=== PATIENT | female | born 1995 | race Caucasian/White ===

== ENCOUNTER 2016-04-16 16:02 | Emergency (ER) | payer OTHER ==
--- NOTE | 2016-04-16 18:40 | REPUSA ---
CLINICAL HISTORY: VAGINAL BLEEDING TECHNIQUE: Transabdominal and endovaginal ultrasound of the pelvis was performed. FINDINGS: The uterus is anteverted. A pole is identified with crown-rump length of 0.26 cm, which corresponds to a gestational age of 9 weeks and 2 days. A yolk sac is noted. heart motion is demonstrated, with a rate of 175 beats per minute. DORA is estimated at 11/17/16. Both ovaries are identified without adnexal mass or pelvic fluid collection. IMPRESSION: Single live IUP dated at 9 weeks and 2 days.
[2016-04-16 18:41] LABS: MEAN CORPUSCULAR HEMOGLOBIN 29.4 pg (27.0-33.0); MEAN CORPUSCULAR HGB CONC 34.5 g/dl (32.0-36.5); MEAN CORPUSCULAR VOLUME 85.2 fl (80.0-96.0); RED CELL DISTRIBUTION WIDTH 13.2 % (11.5-14.5); WHITE BLOOD COUNT 11.6 K/mm3 (4.0-10.0)
[2016-04-16 18:57] LABS: ALBUMIN 3.7 GM/DL (3.2-5.2); ALBUMIN/GLOBULIN RATIO 1.16 (1.00-1.93); ALKALINE PHOSPHATASE 98 U/L (45-117); ALT/SGPT 27 U/L (12-78); ANION GAP 10 MEQ/L (8-16); AST/SGOT 24 U/L (15-37); BILIRUBIN,TOTAL 0.3 MG/DL (0.2-1.0); BLOOD UREA NITROGEN 8 MG/DL (7-18); CARBON DIOXIDE LEVEL 23 MEQ/L (21-32); CHLORIDE LEVEL 107 MEQ/L (98-107); CREATININE FOR GFR 0.58 MG/DL (0.55-1.02); GLUCOSE, FASTING 78 MG/DL (70-105); HCG, SERUM QUANTITATIVE 102947 MIU/ML; POTASSIUM SERUM 4.1 MEQ/L (3.5-5.1); SODIUM LEVEL 140 MEQ/L (136-145); TOTAL PROTEIN 6.9 GM/DL (6.4-8.2)
--- NOTE | 2016-04-16 21:08 | EDDOCDS ---
Nurse's Notes [facility] Name: Benjamin Veras Age: 20 yrs Sex: Female : 1995 Arrival Date: 04/16/2016 Time: 16:02 Bed I4 / M4 Private MD: YEISON Mohan Diagnosis: related conditions, unspecified, first trimester;Pelvic and perineal pain;Other abnormal uterine and vaginal bleeding-Spotting post U/S Presentation: 04/16 16:55 Presenting complaint: Patient states: approx 9 weeks with vag bleeding x2 hrs. ttb Heavy bleeding. Some mild cramping. Risk factors: The patient reports no loss of conciousness prior to arrival. This patient has not had a hysterectomy. This patient has not begun menopause. Adult Sepsis Screening: The patient does not have new or worsening altered mentation. Patient's respiratory rate is less than 22. Systolic blood pressure is greater than 100. Patient has a qSOFA score of 0- Negative Sepsis Screen. Suicide/Homicide risk assessment- the patient denies having any suicidal and/or homicidal ideations and does not present with any other emotional, behavioral or mental health complaints. Status: The patient is a dependent. Transition of care: patient was not received from another setting of care. 16:55 Acuity: JARED Level 3 ttb 16:55 Method Of Arrival: Walkin/Carried/Asstd ttb Triage Assessment: 16:57 General: Appears in no apparent distress, well nourished, well groomed, Behavior is ttb appropriate for age, cooperative, pleasant. Pain: Location: lower abd Pain currently is 4 out of 10 on a pain scale. Pain does not radiate. Quality of pain is described as sharp, sharp on right, mild cramping. HIV screening NA for this visit Offered previously. Neurological: Level of Consciousness is awake, alert. Cardiovascular: Chest pain is denied. Respiratory: No deficits noted. Airway is patent Denies cough, shortness of breath. : Reports vaginal bleeding that is heavy flow since 2 hrs ago. Derm: Skin is normal. Injury Description: No known injury. 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 Vitamin Oral tab 1 tab once daily (Last dose: 04/15/2016 20:00) - PMHx: Polycystic Ovary Disease; - PSHx: Tonsillectomy; - Social history: Smoking status: Patient states was never smoker of tobacco. Patient/guardian denies using alcohol, street drugs, No barriers to communication noted, The patient speaks fluent Mosotho, Speaks appropriately for age. - Family history: Not pertinent. - : The pt / caregiver states he / she is not on anticoagulants. Home medication list is obtained from the patient. - Exposure Risk Screening:: None identified. Screenin:05 Screening information is obtained from the patient. Fall risk: No risks identified. ka4 Assistance ADL's: requires no assistance with activities of daily living. Abuse/DV Screen: The patient / caregiver reports he/she is: not in a situation that causes fear, pain or injury. Nutritional screening: No deficits noted. Advance Directives: There is no active DNR order. home support is adequate. Assessment: 18:02 General: Appears in no apparent distress, comfortable, well developed, well nourished, ka4 well groomed, Behavior is appropriate for age, cooperative, pleasant. Neurological: Level of Consciousness is awake, alert, obeys commands, Oriented to person, place, time, Content Creation Manager are equal bilaterally Moves all extremities. Gait is steady, Speech is normal. Respiratory: Airway is patent Respiratory effort is even, unlabored, Respiratory pattern is regular, symmetrical. GI: Abdomen is flat, non- distended. Derm: Skin is intact, is healthy with good turgor, Skin is pink, warm & dry. 19:30 General: Appears in no apparent distress, Behavior is cooperative, denies of rs3 pain/distress. returned from ultrasound. waiting on test results. . 21:05 General: Appears in no apparent distress, comfortable, well nourished, well groomed, ka4 Behavior is appropriate for age, cooperative, crying, pleasant. Neurological: Level of Consciousness is awake, alert, obeys commands, Oriented to person, place, time, Content Creation Manager are equal bilaterally Moves all extremities. Gait is steady, Speech is normal. Respiratory: Airway is patent Respiratory effort is even, unlabored, Respiratory pattern is regular, symmetrical. Derm: Skin is intact, is healthy with good turgor, Skin is pink, warm & dry. Vital Signs: 16:03 BP 139 / 84; Pulse 80; Resp 18 S; Temp 98.0(O); Pulse Ox 100% on R/A; Weight 68.04 kg gr2 (R); Height 5 ft. 7 in. (170.18 cm) (R); Pain 2/10; 20:58 BP 128 / 77 LA Sitting (auto/reg); Pulse 81 MON; Resp 18 S; Temp 98.3(O); Pulse Ox 100% ka4 on R/A; Pain 0/10; 16:03 Body Mass Index 23.49 (68.04 kg, 170.18 cm) gr2 Vitals: 16:03 Log In Time: April 16, 2016 at 16:03. gr2 ED Course: 16:03 Patient visited by Danyell Chaves. gr2 16:03 [facility] is Private Physician. gr2 16:03 Patient moved to Waiting gr2 16:05 Patient visited by Danyell Chaves. gr2 16:06 Patient moved to Pre RCE gr2 16:56 Triage Initiated ttb 17:01 Patient moved to Triage 2 ka4 17:26 Cher Quiñones PA-C is PHCP. ef1 17:26 Carolyn Toscano MD is Attending Physician. ef1 17:27 Patient visited by Cher Quiñones PA-C. ef1 17:39 Patient moved to I4 / M4 ka4 17:58 Complete Comphrensive Metabolic Sent. ka4 17:58 Complete Blood Count Sent. ka4 17:58 Hcg, Serum Quantitative Sent. ka4 17:58 Type & Screen Sent. ka4 17:58 Inserted saline lock: 20 gauge in left antecubital area and blood collected. The ka4 patient tolerated the procedure well. Labs drawn. (by ED staff). Sent per order to lab. Urine collected. Clean catch specimen. Urine specimen sent to lab. 17:59 Patient visited by Radha Gil LPN. ka4 18:02 Patient moved to Ultrasound am17 18:03 Patient visited by Radha Gil LPN. ka4 18:09 Patient moved to I4 / M4 am17 18:45 [facility] Payment Agreement was scanned into [employer] and attached to record. gjb 18:55 Patient visited by Cher Quiñones PA-C. ef1 19:05 US 1st trimester Returned. EDMS 19:17 Patient visited by Cher Quiñones PA-C. ef1 20:07 Patient visited by Cher Quiñones PA-C. ef1 20:25 Patient visited by Cher Quiñones PA-C. ef1 20:54 Patient visited by Cher Quiñones PA-C. ef1 20:56 Emanuel Concepcion, OB is Referral Physician. ef1 21:05 The patient / caregiver is instructed regarding the plan of care and ED course. Patient kelly has correct armband on for positive identification. 21:05 Discontinued IV lock intact, bleeding controlled, pressure dressing applied, No ka4 redness/swelling at site. No procedures done that require assistance. Administered Medications: 18:02 Drug: NS 0.9% 1000 ml [sodium chloride 0.9 % intravenous solution] Route: IV; Rate: ka4 bolus; Site: left antecubital; Order Results: Lab Order: Complete Blood Count; SPEC'M 04/16/16 17:42 Test: WHITE BLOOD COUNT; Value: 11.6; Range: 4.0-10.0; Abnormal: Above high normal; Units: K/mm3; Status: F Test: RED BLOOD COUNT; Value: 4.76; Range: 4.00-5.40; Units: M/mm3; Status: F Test: HEMOGLOBIN; Value: 14.0; Range: 12.0-16.0; Units: g/dl; Status: F Test: HEMATOCRIT; Value: 40.6; Range: 36.0-47.0; Units: %; Status: F Test: MEAN CORPUSCULAR VOLUME; Value: 85.2; Range: 80.0-96.0; Units: fl; Status: F Test: MEAN CORPUSCULAR HEMOGLOBIN; Value: 29.4; Range: 27.0-33.0; Units: pg; Status: F Test: MEAN CORPUSCULAR HGB CONC; Value: 34.5; Range: 32.0-36.5; Units: g/dl; Status: F Test: RED CELL DISTRIBUTION WIDTH; Value: 13.2; Range: 11.5-14.5; Units: %; Status: F Test: PLATELET COUNT, AUTOMATED; Value: 250; Range: 150-450; Units: k/mm3; Status: F Lab Order: Hcg, Serum Quantitative; SPEC'M 04/16/16 17:42 Test: HCG, SERUM QUANTITATIVE; Value: [id number]; Units: MIU/ML; Status: F Test Note: ; GESTATIONAL AGE APPROXIMATE HCG RANGE (MIU/ML) 0.2-1 WEEK 5-50 1-2 WEEKS 50-500 2-3 WEEKS 100-5,000 3-4 WEEKS 500-10,000 4-5 WEEKS 1,000-50,000 5-6 WEEKS 10,000-100,000 6-8 WEEKS 15,000-200,000 2-3 MONTHS 10,000-100,000 NON FEMALES LESS THAN 3.0 Patient samples may contain human heterophilic antibodies that could react with immunoassays to give falsely elevated or depressed results. This assay has been designed to minimize interference from heterophilic antibodies. Elevated hCG levels have also been associated with trophoblastic disease and nontrophoblastic neoplasms. The possibility of having these diseases should be considered before a diagnosis of is made. This test is not intended for use as a surrogate marker for aiding in the diagnosis or monitoring the treatment of cancer patients. Siemens Stuffle methodology. Lab Order: Type & Screen; SPEC'M 04/16/16 19:37 Test: BLOOD TYPE; Value: O POS; Status: F Test: AB SCREEN (INDIRECT JOSE)GEL; Value: NEGATIVE; Status: F Lab Order: Urinalysis; SPEC'M 04/16/16 17:41 Test: APPEARANCE, URINE; Value: HAZY; Range: CLEAR; Status: F Test: COLOR, URINE; Value: YELLOW; Range: YELLOW; Status: F Test: PH,URINE; Value: 6.0; Range: 5.0-9.0; Units: UNITS; Status: F Test: SPECIFIC GRAVITY URINE AUTO; Value: 1.014; Range: 1.002-1.035; Status: F Test: PROTEIN, URINE AUTO; Value: NEGATIVE; Range: NEGATIVE; Units: mg/dL; Status: F Test: GLUCOSE, URINE (UA) AUTO; Value: NEGATIVE; Range: NEGATIVE; Units: mg/dL; Status: F Test: KETONE, URINE AUTO; Value: NEGATIVE; Range: NEGATIVE; Units: mg/dL; Status: F Test: UROBILINOGEN, URINE AUTO; Value: 0.2; Range: 0.0-2.0; Units: mg/dL; Status: F Test: BILIRUBIN, URINE AUTO; Value: NEGATIVE; Range: NEGATIVE; Status: F Test: NITRITE, URINE AUTO; Value: NEGATIVE; Range: NEGATIVE; Status: F Test: LEUKOCYTE ESTERASE, URINE AUTO; Value: NEGATIVE; Range: NEGATIVE; Status: F Test: BLOOD, URINE BLOOD; Value: 3+; Range: NEGATIVE; Abnormal: Above high normal; Status: F Test: WBC, URINE AUTO; Value: 3; Range: 0-3; Units: /HPF; Status: F Test: RBC, URINE AUTO; Value: 23; Range: 0-3; Abnormal: Above high normal; Units: /HPF; Status: F Test: BACTERIA, URINE AUTO; Value: 1+; Range: NEGATIVE; Abnormal: Above high normal; Status: F Test: SQUAMOUS EPITHELIAL CELL UR AU; Value: 4; Range: 0-6; Units: /HPF; Status: F Test: MUCUS, URINE; Value: SMALL; Range: NEGATIVE; Status: F Test: HYALINE CAST, URINE AUTO; Value: 0; Range: 0-1; Units: /LPF; Status: F Lab Order: Complete Comphrensive Metabolic; SPEC'M 04/16/16 17:42 Test: GLUCOSE, FASTING; Value: 78; Range: 70-105; Units: MG/DL; Status: F Test: BLOOD UREA NITROGEN; Value: 8; Range: 7-18; Units: MG/DL; Status: F Test: CREATININE FOR GFR; Value: 0.58; Range: 0.55-1.02; Units: MG/DL; Status: F Test: SODIUM LEVEL; Value: 140; Range: 136-145; Units: MEQ/L; Status: F Test: POTASSIUM SERUM; Value: 4.1; Range: 3.5-5.1; Units: MEQ/L; Status: F Test: CHLORIDE LEVEL; Value: 107; Range: 98-107; Units: MEQ/L; Status: F Test: CARBON DIOXIDE LEVEL; Value: 23; Range: 21-32; Units: MEQ/L; Status: F Test: ANION GAP; Value: 10; Range: 8-16; Units: MEQ/L; Status: F Test: CALCIUM LEVEL; Value: 9.0; Range: 8.5-10.1; Units: MG/DL; Status: F Test: AST/SGOT; Value: 24; Range: 15-37; Units: U/L; Status: F Test: ALT/SGPT; Value: 27; Range: 12-78; Units: U/L; Status: F Test: ALKALINE PHOSPHATASE; Value: 98; Range: 45-117; Units: U/L; Status: F Test: BILIRUBIN,TOTAL; Value: 0.3; Range: 0.2-1.0; Units: MG/DL; Status: F Test: TOTAL PROTEIN; Value: 6.9; Range: 6.4-8.2; Units: GM/DL; Status: F Test: ALBUMIN; Value: 3.7; Range: 3.2-5.2; Units: GM/DL; Status: F Test: ALBUMIN/GLOBULIN RATIO; Value: 1.16; Range: 1.00-1.93; Status: F Radiology Order: US 1st trimester Test: US 1st trimester REASON FOR EXAMINATION: Bleeding; ; CLINICAL HISTORY: VAGINAL BLEEDING; TECHNIQUE: Transabdominal and endovaginal ultrasound of the pelvis was performed.; FINDINGS: The uterus is anteverted.; A pole is identified with crown-rump length of 0.26 cm, which corresponds to a gestational age; of 9 weeks and 2 days. A yolk sac is noted.; heart motion is demonstrated, with a rate of 175 beats per minute.; DORA is estimated at 8/17.; Both ovaries are identified without adnexal mass or pelvic fluid collection.; IMPRESSION: Single live IUP dated at 9 weeks and 2 days.; ; Outcome: 20:56 Discharge ordered by Provider. ef1 21:05 Discharge Assessment: Patient awake, alert and oriented x 3. No cognitive and/or ka4 functional deficits noted. Patient verbalized understanding of disposition instructions. patient administered narcotics - no. The following High Risk Discharge criteria are identified: None. Discharged to home ambulatory. Condition: good Condition: stable Condition: improved. Discharge instructions given to patient, significant other, Instructed on discharge instructions, follow up and referral plans. Demonstrated understanding of instructions, Pt was receptive of discharge instructions/ teaching. Ultrasound Study completed. Property :Personal belongings accompany Pt. 21:07 Patient left the ED. ka4 Signatures: Dispatcher [employer] EDCher Bearden, TANO FREEDMAN ef1 Kelly Carlson RN RN rs3 Karen Mariano RN RN ttb Danyell Chaves gr2 Abby Jose am17 Radha Gil,INTEGRATED LOGISTICS PROGRAMS DIRECTOR INTEGRATED LOGISTICS PROGRAMS DIRECTOR ka4 Agnes Gong MTDD
--- NOTE | 2016-04-16 21:08 | EDDOCDS ---
Physician Documentation [facility] Name: Benjamin Veras Age: 20 yrs Sex: Female : 1995 Arrival Date: 04/16/2016 Time: 16:02 Bed I4 / M4 Private MD: Mar[place] [facility] [place]position: 04/16/16 20:56 Discharged to Home/Self Care. Impression: related conditions, unspecified, first trimester, Pelvic and perineal pain, Other abnormal uterine and vaginal bleeding - Spotting post U/S. - Condition is Stable. - Discharge Instructions: Medicines During , First Trimester of , [id number], Abdominal Pain During , [id number]. - Medication Reconciliation, Local Pharmacy Hours form. - Follow up: [facility] [place]; When: 1 - 2 days; Reason: Further diagnostic work-up, Recheck today's complaints, Continuance of care. Follow up: Emergency Department; Reason: Worsening of conditions. - Problem is new. - Symptoms have improved. Historical: - Allergies: no known allergies; - Home Meds: 1. Vitamin Oral tab 1 tab once daily (Last dose: 04/15/2016 20:00) - PMHx: Polycystic Ovary Disease; - PSHx: Tonsillectomy; - Social history: Smoking status: Patient states was never smoker of tobacco. Patient/guardian denies using alcohol, street drugs, No barriers to communication noted, The patient speaks fluent Maori, Speaks appropriately for age. - Family history: Not pertinent. - : The pt / caregiver states he / she is not on anticoagulants. Home medication list is obtained from the patient. - Exposure Risk Screening:: None identified. 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 7 in. (170.18 cm) (R); Pain 2/10; 20:58 BP 128 / 77 LA Sitting (auto/reg); Pulse 81 MON; Resp 18 S; Temp 98.3(O); Pulse Ox 100% ka4 on R/A; Pain 0/10; 16:03 Body Mass Index 23.49 (68.04 kg, 170.18 cm) gr2 MDM: 17:38 IV Saline Lock ordered. ef1 17:38 Undress patient appropriately for examination ordered. ef1 17:38 NS 0.9% 1000 ml IV at bolus once ordered. ef1 17:39 Complete Blood Count Ordered. EDMS 17:39 Hcg, Serum Quantitative Ordered. EDMS 17:39 Type & Screen Ordered. EDMS 17:39 Urinalysis Ordered. EDMS 17:39 Urine Culture Ordered. EDMS 17:39 Complete Comphrensive Metabolic Ordered. EDMS 17:40 US 1st trimester Ordered. EDMS 18:42 Financial registration complete. b 18:45 [facility] Payment Agreement was scanned into [employer] and attached to record. gjb 18:59 Complete Blood Count Reviewed. ef1 18:59 Urinalysis Reviewed. ef1 18:59 Hcg, Serum Quantitative Reviewed. ef1 18:59 Complete Comphrensive Metabolic Reviewed. ef1 20:07 US 1st trimester Reviewed. ef1 20:54 Type & Screen Reviewed. ef1 Administered Medications: 18:02 Drug: NS 0.9% 1000 ml [sodium chloride 0.9 % intravenous solution] Route: IV; Rate: ka4 bolus; Site: left antecubital; Signatures: Dispatcher [employer] Cher Richardson PA-C PA-C ef1 Karen Mariano, RN RN ttb Radha Gil LPN LPN ka4 Agnes Gong The chart was reviewed and I authenticate all verbal orders and agree with the evaluation and treatment provided.Attachments: 18:45 [facility] Payment Agreement banner MTDD
--- NOTE | 2016-04-18 22:08 | EDDOCDS ---
Nurse's Notes [facility] Name: Benjamin Veras Age: 20 yrs Sex: Female : 1995 Arrival Date: 04/16/2016 Time: 16:02 Bed I4 / M4 Private MD: YEISON Mohan Diagnosis: related conditions, unspecified, first trimester;Pelvic and perineal pain;Other abnormal uterine and vaginal bleeding-Spotting post U/S Presentation: 04/16 16:55 Presenting complaint: Patient states: approx 9 weeks with vag bleeding x2 hrs. ttb Heavy bleeding. Some mild cramping. Risk factors: The patient reports no loss of conciousness prior to arrival. This patient has not had a hysterectomy. This patient has not begun menopause. Adult Sepsis Screening: The patient does not have new or worsening altered mentation. Patient's respiratory rate is less than 22. Systolic blood pressure is greater than 100. Patient has a qSOFA score of 0- Negative Sepsis Screen. Suicide/Homicide risk assessment- the patient denies having any suicidal and/or homicidal ideations and does not present with any other emotional, behavioral or mental health complaints. Status: The patient is a dependent. Transition of care: patient was not received from another setting of care. 16:55 Acuity: JARED Level 3 ttb 16:55 Method Of Arrival: Walkin/Carried/Asstd ttb Triage Assessment: 16:57 General: Appears in no apparent distress, well nourished, well groomed, Behavior is ttb appropriate for age, cooperative, pleasant. Pain: Location: lower abd Pain currently is 4 out of 10 on a pain scale. Pain does not radiate. Quality of pain is described as sharp, sharp on right, mild cramping. HIV screening NA for this visit Offered previously. Neurological: Level of Consciousness is awake, alert. Cardiovascular: Chest pain is denied. Respiratory: No deficits noted. Airway is patent Denies cough, shortness of breath. : Reports vaginal bleeding that is heavy flow since 2 hrs ago. Derm: Skin is normal. Injury Description: No known injury. 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 Vitamin Oral tab 1 tab once daily (Last dose: 04/15/2016 20:00) - PMHx: Polycystic Ovary Disease; - PSHx: Tonsillectomy; - Social history: Smoking status: Patient states was never smoker of tobacco. Patient/guardian denies using alcohol, street drugs, No barriers to communication noted, The patient speaks fluent Lao, Speaks appropriately for age. - Family history: Not pertinent. - : The pt / caregiver states he / she is not on anticoagulants. Home medication list is obtained from the patient. - Exposure Risk Screening:: None identified. Screenin:05 Screening information is obtained from the patient. Fall risk: No risks identified. ka4 Assistance ADL's: requires no assistance with activities of daily living. Abuse/DV Screen: The patient / caregiver reports he/she is: not in a situation that causes fear, pain or injury. Nutritional screening: No deficits noted. Advance Directives: There is no active DNR order. home support is adequate. Assessment: 18:02 General: Appears in no apparent distress, comfortable, well developed, well nourished, ka4 well groomed, Behavior is appropriate for age, cooperative, pleasant. 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 Gait is steady, Speech is normal. Respiratory: Airway is patent Respiratory effort is even, unlabored, Respiratory pattern is regular, symmetrical. GI: Abdomen is flat, non- distended. Derm: Skin is intact, is healthy with good turgor, Skin is pink, warm & dry. 19:30 General: Appears in no apparent distress, Behavior is cooperative, denies of rs3 pain/distress. returned from ultrasound. waiting on test results. . 21:05 General: Appears in no apparent distress, comfortable, well nourished, well groomed, ka4 Behavior is appropriate for age, cooperative, crying, pleasant. 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 Gait is steady, Speech is normal. Respiratory: Airway is patent Respiratory effort is even, unlabored, Respiratory pattern is regular, symmetrical. Derm: Skin is intact, is healthy with good turgor, Skin is pink, warm & dry. Vital Signs: 16:03 BP 139 / 84; Pulse 80; Resp 18 S; Temp 98.0(O); Pulse Ox 100% on R/A; Weight 68.04 kg gr2 (R); Height 5 ft. 7 in. (170.18 cm) (R); Pain 2/10; 20:58 BP 128 / 77 LA Sitting (auto/reg); Pulse 81 MON; Resp 18 S; Temp 98.3(O); Pulse Ox 100% ka4 on R/A; Pain 0/10; 16:03 Body Mass Index 23.49 (68.04 kg, 170.18 cm) gr2 Vitals: 16:03 Log In Time: April 16, 2016 at 16:03. gr2 ED Course: 16:03 Patient visited by Danyell Chaves. gr2 16:03 Marques [facility] is Private Physician. gr2 16:03 Patient moved to Waiting gr2 16:05 Patient visited by Danyell Chaves. gr2 16:06 Patient moved to Pre RCE gr2 16:56 Triage Initiated ttb 17:01 Patient moved to Triage 2 ka4 17:26 Cher Quiñones PA-C is PHCP. ef1 17:26 Carolyn Toscano MD is Attending Physician. ef1 17:27 Patient visited by Cher Quiñones PA-C. ef1 17:39 Patient moved to I4 / M4 ka4 17:58 Complete Comphrensive Metabolic Sent. ka4 17:58 Complete Blood Count Sent. ka4 17:58 Hcg, Serum Quantitative Sent. ka4 17:58 Type & Screen Sent. ka4 17:58 Inserted saline lock: 20 gauge in left antecubital area and blood collected. The ka4 patient tolerated the procedure well. Labs drawn. (by ED staff). Sent per order to lab. Urine collected. Clean catch specimen. Urine specimen sent to lab. 17:59 Patient visited by Radha Gil LPN. ka4 18:02 Patient moved to Ultrasound am17 18:03 Patient visited by Radha Gil LPN. ka4 18:09 Patient moved to I4 / M4 am17 18:45 [facility] Payment Agreement was scanned into Retty and attached to record. gjb 18:55 Patient visited by Cher Quiñones PA-C. ef1 19:05 US 1st trimester Returned. EDMS 19:17 Patient visited by Cher Quiñones PA-C. ef1 20:07 Patient visited by Cher Quiñones PA-C. ef1 20:25 Patient visited by Cher Quiñones PA-C. ef1 20:54 Patient visited by Cher Quiñones PA-C. ef1 20:56 Emanuel Concepcion, OB is Referral Physician. ef1 21:05 The patient / caregiver is instructed regarding the plan of care and ED course. Patient kelly has correct armband on for positive identification. 21:05 Discontinued IV lock intact, bleeding controlled, pressure dressing applied, No ka4 redness/swelling at site. No procedures done that require assistance. 04/17 07:21 T-Sheet-- Draft Copy was scanned into Retty and attached to record. gb 11:54 Radiology Report was scanned into Retty and attached to record. gb Administered Medications: 04/16 18:02 Drug: NS 0.9% 1000 ml [sodium chloride 0.9 % intravenous solution] Route: IV; Rate: ka4 bolus; Site: left antecubital; Order Results: Lab Order: Complete Blood Count; SPEC'M 04/16/16 17:42 Test: WHITE BLOOD COUNT; Value: 11.6; Range: 4.0-10.0; Abnormal: Above high normal; Units: K/mm3; Status: F Test: RED BLOOD COUNT; Value: 4.76; Range: 4.00-5.40; Units: M/mm3; Status: F Test: HEMOGLOBIN; Value: 14.0; Range: 12.0-16.0; Units: g/dl; Status: F Test: HEMATOCRIT; Value: 40.6; Range: 36.0-47.0; Units: %; Status: F Test: MEAN CORPUSCULAR VOLUME; Value: 85.2; Range: 80.0-96.0; Units: fl; Status: F Test: MEAN CORPUSCULAR HEMOGLOBIN; Value: 29.4; Range: 27.0-33.0; Units: pg; Status: F Test: MEAN CORPUSCULAR HGB CONC; Value: 34.5; Range: 32.0-36.5; Units: g/dl; Status: F Test: RED CELL DISTRIBUTION WIDTH; Value: 13.2; Range: 11.5-14.5; Units: %; Status: F Test: PLATELET COUNT, AUTOMATED; Value: 250; Range: 150-450; Units: k/mm3; Status: F Lab Order: Hcg, Serum Quantitative; [facility] 04/16/16 17:42 Test: HCG, SERUM QUANTITATIVE; Value: [id number]; Units: MIU/ML; Status: F Test Note: ; GESTATIONAL AGE APPROXIMATE HCG RANGE (MIU/ML) 0.2-1 WEEK 5-50 1-2 WEEKS 50-500 2-3 WEEKS 100-5,000 3-4 WEEKS 500-10,000 4-5 WEEKS 1,000-50,000 5-6 WEEKS 10,000-100,000 6-8 WEEKS 15,000-200,000 2-3 MONTHS 10,000-100,000 NON FEMALES LESS THAN 3.0 Patient samples may contain human heterophilic antibodies that could react with immunoassays to give falsely elevated or depressed results. This assay has been designed to minimize interference from heterophilic antibodies. Elevated hCG levels have also been associated with trophoblastic disease and nontrophoblastic neoplasms. The possibility of having these diseases should be considered before a diagnosis of is made. This test is not intended for use as a surrogate marker for aiding in the diagnosis or monitoring the treatment of cancer patients. Siemens [employer]oco[employer] methodology. Lab Order: Type & Screen; [facility] 04/16/16 19:37 Test: BLOOD TYPE; Value: O POS; Status: F Test: AB SCREEN (INDIRECT JOSE)GEL; Value: NEGATIVE; Status: F Lab Order: Urinalysis; [facility] 04/16/16 17:41 Test: APPEARANCE, URINE; Value: HAZY; Range: CLEAR; Status: F Test: COLOR, URINE; Value: YELLOW; Range: YELLOW; Status: F Test: PH,URINE; Value: 6.0; Range: 5.0-9.0; Units: UNITS; Status: F Test: SPECIFIC GRAVITY URINE AUTO; Value: 1.014; Range: 1.002-1.035; Status: F Test: PROTEIN, URINE AUTO; Value: NEGATIVE; Range: NEGATIVE; Units: mg/dL; Status: F Test: GLUCOSE, URINE (UA) AUTO; Value: NEGATIVE; Range: NEGATIVE; Units: mg/dL; Status: F Test: KETONE, URINE AUTO; Value: NEGATIVE; Range: NEGATIVE; Units: mg/dL; Status: F Test: UROBILINOGEN, URINE AUTO; Value: 0.2; Range: 0.0-2.0; Units: mg/dL; Status: F Test: BILIRUBIN, URINE AUTO; Value: NEGATIVE; Range: NEGATIVE; Status: F Test: NITRITE, URINE AUTO; Value: NEGATIVE; Range: NEGATIVE; Status: F Test: LEUKOCYTE ESTERASE, URINE AUTO; Value: NEGATIVE; Range: NEGATIVE; Status: F Test: BLOOD, URINE BLOOD; Value: 3+; Range: NEGATIVE; Abnormal: Above high normal; Status: F Test: WBC, URINE AUTO; Value: 3; Range: 0-3; Units: /HPF; Status: F Test: RBC, URINE AUTO; Value: 23; Range: 0-3; Abnormal: Above high normal; Units: /HPF; Status: F Test: BACTERIA, URINE AUTO; Value: 1+; Range: NEGATIVE; Abnormal: Above high normal; Status: F Test: SQUAMOUS EPITHELIAL CELL UR AU; Value: 4; Range: 0-6; Units: /HPF; Status: F Test: MUCUS, URINE; Value: SMALL; Range: NEGATIVE; Status: F Test: HYALINE CAST, URINE AUTO; Value: 0; Range: 0-1; Units: /LPF; Status: F Lab Order: Urine Culture; SPEC'M 04/16/16 17:41 Test: URINE CULTURE; Value: URINE CULTURE RESULT NO GROWTH CLINICAL SIGNIFICANCE 1 ORGANISM; Status: F Lab Order: Complete Comphrensive Metabolic; SPEC'M 04/16/16 17:42 Test: GLUCOSE, FASTING; Value: 78; Range: 70-105; Units: MG/DL; Status: F Test: BLOOD UREA NITROGEN; Value: 8; Range: 7-18; Units: MG/DL; Status: F Test: CREATININE FOR GFR; Value: 0.58; Range: 0.55-1.02; Units: MG/DL; Status: F Test: SODIUM LEVEL; Value: 140; Range: 136-145; Units: MEQ/L; Status: F Test: POTASSIUM SERUM; Value: 4.1; Range: 3.5-5.1; Units: MEQ/L; Status: F Test: CHLORIDE LEVEL; Value: 107; Range: 98-107; Units: MEQ/L; Status: F Test: CARBON DIOXIDE LEVEL; Value: 23; Range: 21-32; Units: MEQ/L; Status: F Test: ANION GAP; Value: 10; Range: 8-16; Units: MEQ/L; Status: F Test: CALCIUM LEVEL; Value: 9.0; Range: 8.5-10.1; Units: MG/DL; Status: F Test: AST/SGOT; Value: 24; Range: 15-37; Units: U/L; Status: F Test: ALT/SGPT; Value: 27; Range: 12-78; Units: U/L; Status: F Test: ALKALINE PHOSPHATASE; Value: 98; Range: 45-117; Units: U/L; Status: F Test: BILIRUBIN,TOTAL; Value: 0.3; Range: 0.2-1.0; Units: MG/DL; Status: F Test: TOTAL PROTEIN; Value: 6.9; Range: 6.4-8.2; Units: GM/DL; Status: F Test: ALBUMIN; Value: 3.7; Range: 3.2-5.2; Units: GM/DL; Status: F Test: ALBUMIN/GLOBULIN RATIO; Value: 1.16; Range: 1.00-1.93; Status: F Radiology Order: US 1st trimester Test: US 1st trimester REASON FOR EXAMINATION: Bleeding; ; CLINICAL HISTORY: VAGINAL BLEEDING; TECHNIQUE: Transabdominal and endovaginal ultrasound of the pelvis was performed.; FINDINGS: The uterus is anteverted.; A pole is identified with crown-rump length of 0.26 cm, which corresponds to a gestational age; of 9 weeks and 2 days. A yolk sac is noted.; heart motion is demonstrated, with a rate of 175 beats per minute.; DORA is estimated at 11/17/16.; Both ovaries are identified without adnexal mass or pelvic fluid collection.; IMPRESSION: Single live IUP dated at 9 weeks and 2 days.; ; Outcome: 20:56 Discharge ordered by Provider. ef1 21:05 Discharge Assessment: Patient awake, alert and oriented x 3. No cognitive and/or ka4 functional deficits noted. Patient verbalized understanding of disposition instructions. patient administered narcotics - no. The following High Risk Discharge criteria are identified: None. Discharged to home ambulatory. Condition: good Condition: stable Condition: improved. Discharge instructions given to patient, significant other, Instructed on discharge instructions, follow up and referral plans. Demonstrated understanding of instructions, Pt was receptive of discharge instructions/ teaching. Ultrasound Study completed. Property :Personal belongings accompany Pt. 21:07 Patient left the ED. ka4 Signatures: Dispatcher Med[employer] EDMS Julia Pearson, Reg Reg gb Cher Quiñones, PA-C PA-C ef1 Kelly CarlsonRN RN rs3 Karen Mariano RN RN ttb Danyell Chaves gr2 Abby Jose Kodie, LPN LPN ka4 Agnes Gong Chart Complete MTDBeulah
--- NOTE | 2016-04-18 22:08 | EDDOCDS ---
Physician Documentation [facility] Name: Benjamin Veras Age: 20 yrs Sex: Female : 1995 Arrival Date: 04/16/2016 Time: 16:02 Bed I4 / M4 Private MD: Marques [facility] Disposition: 04/16/16 20:56 Discharged to Home/Self Care. Impression: related conditions, unspecified, first trimester, Pelvic and perineal pain, Other abnormal uterine and vaginal bleeding - Spotting post U/S. - Condition is Stable. - Discharge Instructions: Medicines During , First Trimester of , Qdeb-sn-Khun, Abdominal Pain During , Bwhd-kn-Erfk. - Medication Reconciliation, Local Pharmacy Hours form. - Follow up: [facility] [place]; When: 1 - 2 days; Reason: Further diagnostic work-up, Recheck today's complaints, Continuance of care. Follow up: Emergency Department; Reason: Worsening of conditions. - Problem is new. - Symptoms have improved. Historical: - Allergies: no known allergies; - Home Meds: 1. Vitamin Oral tab 1 tab once daily (Last dose: 04/15/2016 20:00) - PMHx: Polycystic Ovary Disease; - PSHx: Tonsillectomy; - Social history: Smoking status: Patient states was never smoker of tobacco. Patient/guardian denies using alcohol, street drugs, No barriers to communication noted, The patient speaks fluent Occitan, Speaks appropriately for age. - Family history: Not pertinent. - : The pt / caregiver states he / she is not on anticoagulants. Home medication list is obtained from the patient. - Exposure Risk Screening:: None identified. 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 7 in. (170.18 cm) (R); Pain 2/10; 20:58 BP 128 / 77 LA Sitting (auto/reg); Pulse 81 MON; Resp 18 S; Temp 98.3(O); Pulse Ox 100% ka4 on R/A; Pain 0/10; 16:03 Body Mass Index 23.49 (68.04 kg, 170.18 cm) gr2 MDM: 17:38 IV Saline Lock ordered. ef1 17:38 Undress patient appropriately for examination ordered. ef1 17:38 NS 0.9% 1000 ml IV at bolus once ordered. ef1 17:39 Complete Blood Count Ordered. EDMS 17:39 Hcg, Serum Quantitative Ordered. EDMS 17:39 Type & Screen Ordered. EDMS 17:39 Urinalysis Ordered. EDMS 17:39 Urine Culture Ordered. EDMS 17:39 Complete Comphrensive Metabolic Ordered. EDMS 17:40 US 1st trimester Ordered. EDMS 18:42 Financial registration complete. gjb 18:45 [facility] Payment Agreement was scanned into SmartThings and attached to record. gjb 18:59 Complete Blood Count Reviewed. ef1 18:59 Urinalysis Reviewed. ef1 18:59 Hcg, Serum Quantitative Reviewed. ef1 18:59 Complete Comphrensive Metabolic Reviewed. ef1 20:07 US 1st trimester Reviewed. ef1 20:54 Type & Screen Reviewed. ef1 04/17 07:21 T-Sheet-- Draft Copy was scanned into SmartThings and attached to record. gb 11:54 Radiology Report was scanned into SmartThings and attached to record. gb Administered Medications: 04/16 18:02 Drug: NS 0.9% 1000 ml [sodium chloride 0.9 % intravenous solution] Route: IV; Rate: ka4 bolus; Site: left antecubital; Signatures: Dispatcher MedHost EDIN Julia Pearson, Marques Reg gb Cher Quiñones, PAKomalC PA-C ef1 Karen Mariano, YULIANA RN augieb Radha Gil LPN LPN ka4 Agnes Gong The chart was reviewed and I authenticate all verbal orders and agree with the evaluation and treatment provided.Attachments: 18:45 [facility] Payment Agreement [facility] 04/17 07:21 T-Sheet-- Draft Copy gb Chart Complete MTDD
--- NOTE | 2016-04-18 22:08 | EDDOCDS ---
Physician Documentation [facility] Name: Benjamin Veras Age: 20 yrs Sex: Female : 1995 Arrival Date: 04/16/2016 Time: 16:02 Bed I4 / M4 Private MD: Marques [facility] Disposition: 04/16/16 20:56 Discharged to Home/Self Care. Impression: related conditions, unspecified, first trimester, Pelvic and perineal pain, Other abnormal uterine and vaginal bleeding - Spotting post U/S. - Condition is Stable. - Discharge Instructions: Medicines During , First Trimester of , Hjqq-ew-[id number], Abdominal Pain During , Arrm-rr-Rsim. - Medication Reconciliation, Local Pharmacy Hours form. - Follow up: [facility] [place]; When: 1 - 2 days; Reason: Further diagnostic work-up, Recheck today's complaints, Continuance of care. Follow up: Emergency Department; Reason: Worsening of conditions. - Problem is new. - Symptoms have improved. Historical: - Allergies: no known allergies; - Home Meds: 1. Vitamin Oral tab 1 tab once daily (Last dose: 04/15/2016 20:00) - PMHx: Polycystic Ovary Disease; - PSHx: Tonsillectomy; - Social history: Smoking status: Patient states was never smoker of tobacco. Patient/guardian denies using alcohol, street drugs, No barriers to communication noted, The patient speaks fluent Upper Sorbian, Speaks appropriately for age. - Family history: Not pertinent. - : The pt / caregiver states he / she is not on anticoagulants. Home medication list is obtained from the patient. - Exposure Risk Screening:: None identified. 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 7 in. (170.18 cm) (R); Pain 2/10; 20:58 BP 128 / 77 LA Sitting (auto/reg); Pulse 81 MON; Resp 18 S; Temp 98.3(O); Pulse Ox 100% ka4 on R/A; Pain 0/10; 16:03 Body Mass Index 23.49 (68.04 kg, 170.18 cm) gr2 MDM: 17:38 IV Saline Lock ordered. ef1 17:38 Undress patient appropriately for examination ordered. ef1 17:38 NS 0.9% 1000 ml IV at bolus once ordered. ef1 17:39 Complete Blood Count Ordered. EDMS 17:39 Hcg, Serum Quantitative Ordered. EDMS 17:39 Type & Screen Ordered. EDMS 17:39 Urinalysis Ordered. EDMS 17:39 Urine Culture Ordered. EDMS 17:39 Complete Comphrensive Metabolic Ordered. EDMS 17:40 US 1st trimester Ordered. EDMS 18:42 Financial registration complete. gjb 18:45 [facility] Payment Agreement was scanned into Heartbeat and attached to record. gjb 18:59 Complete Blood Count Reviewed. ef1 18:59 Urinalysis Reviewed. ef1 18:59 Hcg, Serum Quantitative Reviewed. ef1 18:59 Complete Comphrensive Metabolic Reviewed. ef1 20:07 US 1st trimester Reviewed. ef1 20:54 Type & Screen Reviewed. ef1 04/17 07:21 T-Sheet-- Draft Copy was scanned into Heartbeat and attached to record. gb 11:54 Radiology Report was scanned into Heartbeat and attached to record. gb Administered Medications: 04/16 18:02 Drug: NS 0.9% 1000 ml [sodium chloride 0.9 % intravenous solution] Route: IV; Rate: ka4 bolus; Site: left antecubital; Signatures: Dispatcher [employer] EDID Julia Pearson, Marques Reg gb Cher Quiñones, PAKomalC PA-C ef1 Karen Mariano, YULIANA RN augieb Radha Gil LPN LPN ka4 Agnes Gong The chart was reviewed and I authenticate all verbal orders and agree with the evaluation and treatment provided.Attachments: 18:45 [facility] Payment Agreement [facility] 04/17 07:21 T-Sheet-- Draft Copy gb Chart Complete MTDD
== END 2016-04-16 21:07 | disposition home or self-care (01) ==
LOC: M ED 16:02
DX: O26.851 Spotting complicating pregnancy, first trimester (principal); R10.2 Pelvic and perineal pain; Z79.899 Other long term (current) drug therapy; Z3A.09 9 weeks gestation of pregnancy

== ENCOUNTER 2016-06-18 07:48 | Emergency (ER) | payer OTHER ==
[~2016-06-18] VITALS: Ht 170.2 cm; Wt 68.9 kg
[2016-06-18] MEDS ORDERED: SYNT50TA PO (08:14)
[2016-06-18] MEDS ORDERED: PRENCHW PO (08:14)
[2016-06-18] MEDS: guaiFENesin SYRUP 200 MG/10 ML UDC PO ONE (08:37)
[2016-06-18] MEDS ORDERED: GUAI100S7 PO (09:10)
[2016-06-18] MEDS ORDERED: OSEL75CA PO (09:10)
[2016-06-18 09:16] VITALS: BP 126/69
== END 2016-06-18 09:18 | disposition home or self-care (01) ==
LOC: M ED 08:38
DX: J10.1 Influenza due to other identified influenza virus with other respiratory manifestations (principal); E03.9 Hypothyroidism, unspecified; E28.2 Polycystic ovarian syndrome

== ENCOUNTER → 2016-06-29 | Outpatient (CLI) | payer OTHER ==
[~2016-06-29] MED LIST: GUAI100S7 PO; OSEL75CA PO; PRENCHW PO; SYNT50TA PO
--- NOTE | 2016-06-29 15:03 | REP ---
Clinical: Anatomical evaluation. Comparison: 04/16/2016 . Findings: Examination demonstrates a single live intrauterine in transverse (head to the maternal left side) presentation. motion is identified by technologist. Placenta is noted anterolaterally to the right side and grade zero without evidence for placenta previa or abruption. Amniotic fluid volume is normal. Cervix measures 5.5 cm in length and appears closed. No evidence for nuchal cord. Gestational age by LMP 18 weeks 5-day with DORA 11/25/2016 . Gestational age by current measurements 20 weeks 0-day with DORA 11/16/2016 . FHR equals 144 beats per minute. BPD 4.6 cm 19 weeks 6 days HC 17.8 cm 20 weeks 2 days AC 15.2 cm 20 weeks 3 days FL 3.2 cm 20 weeks 1 day HC/AC ratio 1.17 Estimated weight 342 grams ( 73rd percentile based on age by first ultrasound). Anatomical assessment demonstrates normal structures including cranium, choroid plexus, cavum, cerebellum/posterior fossa, facial features, lungs, four-chamber heart/ventricular outflow tracts, diaphragm, stomach, cord insertion/three-vessel cord, kidneys/bladder, spine, and extremities. Impression: Transverse lie demonstrating appropriate interval growth from first ultrasound. Anatomical assessment is complete and normal.
== END ==
LOC: M WHC 13:16
PROVIDERS: ATTEND Nurse Practitioner Women's Health
DX: Z34.80 Encounter for supervision of other normal pregnancy, unspecified trimester (principal)